=== PATIENT | female | born 1960 | race Caucasian/White ===

== ENCOUNTER 2020-05-29 09:06 | Outpatient (CLI) | payer OTHER, SELFPAY ==
--- NOTE | ~2020-05-29 | MM_ITS ---
EXAMINATION: MM screening dre BI w winston HISTORY: Screening mammogram TECHNIQUE: Craniocaudal and mediolateral oblique 3-D tomosynthesis images were obtained and synthetic 2-D images were generated. CAD analysis was submitted and interpreted. COMPARISON: 02/22/2019 bilateral digital screening mammogram 02/14/2018 bilateral diagnostic digital mammogram and Limited bilateral breast ultrasound 01/23/2017 bilateral diagnostic digital mammogram and limited left breast ultrasound 07/11/2016 diagnostic left digital mammogram and limited left breast ultrasound 01/01/2016 bilateral diagnostic digital mammogram and complete left breast ultrasound 12/31/2014 bilateral diagnostic digital mammogram and complete bilateral breast ultrasound 12/09/2014 bilateral digital screening mammogram BREAST PARENCHYMAL COMPOSITION: There are scattered areas of fibroglandular density. FINDINGS: There is focal asymmetry/architectural distortion in the posterior central upper right [address]. Diagnostic right mammogram and right breast ultrasound examination are recommended. Otherwise there is no evidence of suspicious mass, calcification, or architectural distortion to sugg est malignancy in either breast. There has been no suspicious interval change. IMPRESSION: 1. Focal asymmetry/architectural distortion is suggested in the posterior central upper right breast 2. Diagnostic right mammogram and right breast ultrasound examination are recommended. BI-RADS Category 0: Incomplete: Needs additional imaging evaluation. Reviewed, dictated and finalized at location A. IMPRESSION: 1. Focal asymmetry/architectural distortion is suggested in the posterior centr al upper right breast 2. Diagnostic right mammogram and right breast ultrasound examination are recom mended. BI-RADS Category 0: Incomplete: Needs additional imaging evaluation.
== END 2020-05-29 09:07 | disposition home or self-care (01) ==
LOC: ANHIMG 09:07
PROVIDERS: PCP Family Medicine; Visit Provider Family Medicine
DX: Z12.31 Encounter for screening mammogram for malignant neoplasm of breast (principal); R92.8 Other abnormal and inconclusive findings on diagnostic imaging of breast
CPT/HCPCS: 77063; 77067

== ENCOUNTER 2020-07-03 12:47 | Outpatient (CLI) | payer OTHER, SELFPAY ==
--- NOTE | ~2020-07-03 | DEXA_ITS ---
Bone Density Report Name: Honey Brown Age: 60 Sex: Female Ethnicity: White Date of : 1960 Indication: osteopenia; height loss; prior fracture; asthma or emphysema; Referring Provider: Karli Mansfield Study: Bone densitometry was performed. Exam Date: July 03, 2020 Accession number: [id number] Bone Density: Region BMD T-score Z-score Classification AP Spine (L1-L4) 0.916 -1.2 0.2 Osteopenia Femoral Neck (Left) 0.677 -1.5 -0.3 Osteopenia Total Hip (Left) 0.889 -0.4 0.5 Normal Total Hip Bilateral Avg 0.907 -0.3 0.7 Normal Femoral Neck (Right) 0.678 -1.5 -0.3 Osteopenia Total Hip (Right) 0.924 -0.2 0.8 Normal World Health Organization criteria for BMD impression classify patients as: Normal (T-score at or above -1.0), Osteopenia (T-score between -1.0 and -2.5), or Osteoporosis (T-score at or below -2.5). 10-year Fracture Risk(1): Major Osteoporotic Fracture 13% Hip Fracture 1.2% Reported Risk Factors: [place] (), Neck BMD=0.678, BMI=23.2, previous fracture (1) FRAX(R) Version 3.08. Fracture probability calculated for an untreated patient. Fracture probability may be lower if the patient has received treatment. Previous Exams: Region Exam Age BMD T-score BMD Change BMD Change Date g/cm2 vs Baseline vs Previous AP Spine(L1-L4) 07/03/2020 60 0.916 -1.2 0.004(0.5%) 0.055(6.4%)* 08/18/2017 57 0.861 -1.7 -0.051(-5.6%)* -0.051(-5.6%)* 10/07/2014 54 0.911 -1.2 Total Hip(Left) 07/03/2020 60 0.889 -0.4 0.015(1.7%) 0.051(6.1%)* 08/18/2017 57 0.838 -0.9 -0.037(-4.2%)* -0.037(-4.2%)* 10/07/2014 54 0.874 -0.6 Total Hip(Right) 07/03/2020 60 0.924 -0.2 0.024(2.6%) 0.079(9.3%)* 08/18/2017 57 0.845 -0.8 -0.055(-6.1%)* -0.055(-6.1%)* 10/07/2014 54 0.900 -0.3 *Denotes significance at 95% confidence level, LSC for AP Spine = 0.022 g/cm2, LSC for Total Hip = 0.027 g/cm2 Clinical Information Provided by Patient: Has had a low trauma fracture Has used the following medications: HRT (i.e. estrogen/hormone therapy), Vitamin D, Calcium Has the following medical conditions: Asthma or Emphysema Patient maximum height was 60 Menopause Age: 54 Drinks caffeinated beverages Onset of menses at age 13 Number of children 0 Impression: The patient has low bone mass, based on the Left Femoral Neck T-score. The patient has an estimated ten-year risk of hip fracture of 1.2% and an estimated t
--- NOTE | ~2020-07-03 | MMUS_ITS ---
EXAMINATION: MM diagnostic mammo unilat RT, US breast RT limited HISTORY: Focal asymmetry/architectural distortion suggested in posterior central upper right breast o n screening mammogram with 05/29/2020 TECHNIQUE: Additional 3-D tomosynthesis images of the right breast were performed and synthetic 2-D i mages were generated. Rolled medial and rolled lateral craniocaudal views. CAD analysis was submitted and interpreted. High resolution upper inner and upper outer right breast ultrasound was performed. COMPARISON: 05/29/2020 bilateral digital screening mammogram FINDINGS: MAMMOGRAPHIC FINDINGS: No reproducible mass or architectural distortion is suggested. ULTRASOUND: There is no evidence of focal abnormal solid or cystic lesion in the upper inner or upper outer quadr ants of the right breast at the area of suggested possible asymmetry/architectural distortion. IMPRESSION: 1. No mammographic evidence of malignancy 2. Routine mammographic screening is recommended. BI-RADS Category 1: Negative Reviewed, dictated and finalized at location A. IMPRESSION: 1. No mammographic evidence of malignancy 2. Routine mammographic screening is recommended. BI-RADS Category 1: Negative
== END 2020-07-03 12:48 | disposition home or self-care (01) ==
LOC: ANHIMG 12:49
PROVIDERS: PCP Family Medicine; Visit Provider Nurse Practitioner
DX: Z78.0 Asymptomatic menopausal state (principal); R92.8 Other abnormal and inconclusive findings on diagnostic imaging of breast; M85.88 Other specified disorders of bone density and structure, other site; M85.852 Other specified disorders of bone density and structure, left thigh; M85.851 Other specified disorders of bone density and structure, right thigh
CPT/HCPCS: 76642; 77065; 77080

== ENCOUNTER 2021-07-21 07:48 | Outpatient (CLI) | payer OTHER, SELFPAY ==
--- NOTE | ~2021-07-21 | MM_ITS ---
EXAMINATION: MM screening dre BI w winston HISTORY: Screening mammogram TECHNIQUE: Craniocaudal and mediolateral oblique 3-D tomosynthesis images were obtained and synthetic 2-D images were generated. CAD analysis was submitted and interpreted. COMPARISON: 07/03/2020 right diagnostic mammogram and limited right breast ultrasound 05/29/2020, 02/22/2019 bilateral digital screening mammogram examinations BREAST PARENCHYMAL COMPOSITION: There are scattered areas of fibroglandular density. FINDINGS: There is no evidence of suspicious mass, calcification, or architectural distortion to sugg est malignancy in either breast. There has been no suspicious interval change. IMPRESSION: 1. No mammographic evidence of malignancy. 2. Recommend routine screening mammography in one year. Reviewed, dictated and finalized at location A.
== END 2021-07-21 07:49 | disposition home or self-care (01) ==
LOC: ANHIMG 07:50
PROVIDERS: PCP Family Medicine; Visit Provider Nurse Practitioner
DX: Z12.31 Encounter for screening mammogram for malignant neoplasm of breast (principal)
CPT/HCPCS: 77063; 77067

== ENCOUNTER 2022-09-27 07:21 | Outpatient (CLI) | payer OTHER, SELFPAY ==
--- NOTE | ~2022-09-27 | MM_ITS ---
EXAMINATION: MM screening dre BI w winston HISTORY: Screening TECHNIQUE: Craniocaudal and mediolateral oblique 3-D tomosynthesis images were obtained and synthetic 2-D images were generated. CAD analysis was submitted and interpreted. COMPARISON: Comparison to multiple prior studies sequentially, with oldest reviewed study dated 01/23. BREAST PARENCHYMAL COMPOSITION: The breasts are heterogeneously dense, which may obscure small masses . FINDINGS: There is no evidence of suspicious mass, calcification, or architectural distortion to sugg est malignancy in either breast. There has been no suspicious interval change. IMPRESSION: 1. No mammographic evidence of malignancy. 2. Recommend routine screening mammography in one year. BI-RADS Category 1: Negative Reviewed, dictated and finalized at location A. F DISPATCHER
== END 2022-09-27 07:22 | disposition home or self-care (01) ==
PROVIDERS: PCP Family Medicine; Visit Provider Nurse Practitioner Family
DX: Z12.31 Encounter for screening mammogram for malignant neoplasm of breast (principal)
CPT/HCPCS: 77063; 77067

== ENCOUNTER 2024-01-30 07:34 | Outpatient (CLI) | payer OTHER, SELFPAY ==
--- NOTE | ~2024-01-30 | MM_ITS ---
EXAMINATION: MM screening dre BI w winston HISTORY: Screening TECHNIQUE: Craniocaudal and mediolateral oblique 3-D tomosynthesis images were obtained and synthetic 2-D images were generated. CAD analysis was submitted and interpreted. COMPARISON: Comparison to multiple prior studies sequentially, with oldest reviewed study dated 02/2018. BREAST PARENCHYMAL COMPOSITION: Not dense: There are scattered areas of fibroglandular density. FINDINGS: There is no evidence of suspicious mass, calcification, or architectural distortion to sugg est malignancy in either breast. There has been no suspicious interval change. IMPRESSION: 1. No mammographic evidence of malignancy. 2. Recommend routine screening mammography in one year. BI-RADS Category 1: Negative Reviewed, dictated and finalized at location A.
== END 2024-01-30 07:35 | disposition home or self-care (01) ==
PROVIDERS: PCP Family Medicine; Visit Provider Nurse Practitioner Family
DX: Z12.31 Encounter for screening mammogram for malignant neoplasm of breast (principal)
CPT/HCPCS: 77063; 77067

== ENCOUNTER 2025-01-30 07:52 | Outpatient (CLI) | payer OTHER, SELFPAY ==
--- NOTE | ~2025-01-30 | DEXA_ITS ---
Bone Density Report Name: DESTINY OHARA Age: 64 Sex: Female Ethnicity: White Date of : 1960 Indication: osteopenia; height loss; history of glucocorticoids; prior fracture; asthma or emphysema; Referring Provider: JOHANNY VASQUEZ Study: Bone densitometry was performed. Exam Date: January 30, 2025 Accession number: [id number] Bone Density: Region BMD T-score Z-score Classification AP Spine(L1-L4) 0.845 -1.8 -0.2 Osteopenia Femoral Neck (Left) 0.642 -1.9 -0.4 Osteopenia Total Hip (Left) 0.834 -0.9 0.3 Normal Femoral Neck (Right) 0.644 -1.8 -0.4 Osteopenia Total Hip (Right) 0.852 -0.7 0.4 Normal Total Hip Mean 0.843 -0.8 0.4 Normal World Health Organization criteria for BMD impression classify patients as: Normal (T-score at or above -1.0), Osteopenia (T-score between -1.0 and -2.5), or Osteoporosis (T-score at or below -2.5). 10-year Fracture Risk(1): Major Osteoporotic Fracture 25% Hip Fracture 3.9% Reported Risk Factors: [place] (), Neck BMD=0.642, BMI=25.0, previous fracture, glucocorticoids (1) FRAX(R) Version 3.08. Fracture probability calculated for an untreated patient. Fracture probability may be lower if the patient has received treatment. Previous Exams: Region Exam Age BMD T-score BMD Change BMD Change Date g/cm2 vs Baseline vs Previous AP Spine (L1-L4) 01/30/2025 64 0.845 -1.8 -0.016 (-1.8%) -0.071 (-7.7%) 07/03/2020 60 0.916 -1.2 0.055 (6.4%)* 0.055 (6.4%)* 08/18/2017 57 0.861 -1.7 Total Hip(Left) 01/30/2025 64 0.834 -0.9 -0.004 (-0.5%) -0.055 (-6.2%) 07/03/2020 60 0.889 -0.4 0.051 (6.1%)* 0.051 (6.1%)* 08/18/2017 57 0.838 -0.9 Total Hip(Right) 01/30/2025 64 0.852 -0.7 0.007 (0.8%)# -0.072 (-7.8%) 07/03/2020 60 0.924 -0.2 0.079 (9.3%)* 0.079 (9.3%)* 08/18/2017 57 0.845 -0.8 *Denotes significance at 95% confidence level, LSC for AP Spine = 0.022 g/cm2, LSC for Total Hip = 0.027 g/cm2 # Denotes dissimilar scan types or analysis methods Clinical Information Provided by Patient: Has had a low trauma fracture Has taken Glucocorticoids Has used the following medications: Vitamin D, Calcium Has the following medical conditions: Asthma or Emphysema Patient maximum height was 60 Menopause Age: 54 Drinks caffeinated beverages Onset of menses at age 16 Number of children 0 Impression: The patient has low bone mass, based on the Left Femoral Neck T-score. The patient has an estimated ten-year risk of hip fracture of 3.9% and an estimated ten-year risk of major fracture of 25%, based on the WHO FRAX algorithm. The patient has risk factors, including: previous fracture, history of glucocorticoid therapy. No significant bone loss was observed. Discussion: BONE DENSITY IS LOW AT ONE OR MORE SKELETAL SITES. THE PATIENT'S BMD AND CLINICAL RISK FACTORS CONTRIBUTE TO THIS PATIENT'S HIGH RISK OF FRACTURE. This patient's lowest T-score is low at one or more skeletal sites. It meets the World Health Organization's (WHO) criteria for ?low bone mass? (T-score between -1.0 and -2.5). The patient's 10-year risk of hip fracture and 10 year risk of a major osteoporotic fracture as calculated by FRAX exceeds the threshold where pharmacological therapy is recommended by the National Osteoporosis Foundation (NOF). However, all treatment decisions require clinical judgment and consideration of individual patient factors, including patient preferences, comorbidities, previous drug use, risk factors not captured in the FRAX model (e.g., frailty, falls, vitamin D deficiency, increased bone turnover, interval significant decline in bone density) and possible under or overestimation of fracture risk by FRAX. The patient should follow a healthful lifestyle (good nutrition with adequate calcium and vitamin D, and appropriate weight-bearing exercise). Follow-Up: Consider a repeat BMD and Vertebral Fracture Assessment (VFA) exam in 2 years or sooner if medically necessary, to reassess this patient's status. Reported by: MORRO on 01/30/2025 8:48:00 AM. Reviewed, dictated and finalized at location AJass MORRIS
--- NOTE | ~2025-01-30 | MM_ITS ---
EXAMINATION: MM screening dre BI w winston HISTORY: Screening TECHNIQUE: Craniocaudal and mediolateral oblique 3-D tomosynthesis images were obtained and synthetic 2-D images were generated. CAD analysis was submitted and interpreted. COMPARISON: Comparison to multiple prior studies sequentially, with oldest reviewed study dated 02/22. BREAST PARENCHYMAL COMPOSITION: Not dense: There are scattered areas of fibroglandular density. FINDINGS: There is a new focal asymmetry laterally in the right breast on CC view, middle third, not confirmed on MLO view. The left breast is stable without evidence for malignancy. IMPRESSION: 1. New focal right breast asymmetry laterally on CC view. 2. Additional mammographic views and possible breast ultrasound are recommended. BI-RADS Category 0: Incomplete: Needs additional imaging evaluation. Reviewed, dictated and finalized at location [] IMPRESSION: 1. New focal right breast asymmetry laterally on CC view. 2. Additional mammographic views and possible breast ultrasound are recommended . BI-RADS Category 0: Incomplete: Needs additional imaging evaluation.
--- OUTSIDE RECORDS SUMMARY | 2025-01-30 08:02 | XMS_ITS | Clinical Summary ---
Author Organization [facility] Address [address] [place] [address] Care Team Providers Care Bandage Winding Machine Operator Name Role Phone Tristen Gongora MD Unavailable [phone] Дмитрий Rai MD Unavailable [phone] Arthur Wilcox MD Primary Care Provider [phone] Source Comments [facility],non-owned Affiliates and Associated Physician Practices is amultiple site organization consisting of ambulatory clinics and hospital sitesin [place], [place], [place] and [place]. This disclosure is being madepursuant to the Care Everywhere program and may not contain all information available regarding this patient. Last updated 18.[facility] Allergies Active Allergy Reactions Criticality Noted Date Comments Omeprazole Rash Low 10/06/2014 Medications * Be aware that medications may not be up to date on this document. Alwaysverify current medications with the patient. Medication Sig Dispensed Refills Start Date End Date Status amLODIPine (NORVASC) 10 MG tablet Take 10 mg by mouth once daily. Active Multiple Minerals-Vitamins (CITRACAL PLUS PO) Take 1,200 mg by mouth once daily. Active Misc Natural Products (OSTEO BI-FLEX JOINT SHIELD) TABS tablet Take 1 Tab by mouth once daily. Active Famotidine-Ca Carb-Mag Hydrox (PEPCID COMPLETE) 10-800-165 MG CHEW Take by mouth once daily Active ospemifene (OSPHENA) 60 MG tablet Take 60 mg by mouth daily with breakfast. Active diazepam (VALIUM) 2 MG tabletIndications:Mu scle Spasm Take 1 Tab by mouth 3 times daily as needed for Anxiety. 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 Overview (02/27/2015): Olfactory Groove Meningioma Family History Medical History Relation Name Comments Kidney Stones Brother 1 Jitendra Negative Family History Brother 2 Sukhwinder CAD (Coronary Artery Disease) Father Cancer Maternal Grandmother multipl e myeloma Hypertension Mother Negative Family History Sister Anila Relation Name Status Comments Brother 1 Jitendra Brother 2 Sukhwinder Father Maternal Grandmother Mother Sister Anila Social History Tobacco Use Types Packs/Day Years Used Date Smoking Tobacco: Never Smokeless Tobacco: Never Alcohol Use Standard Drinks/Week Comments No 0 (1 standard drink = 0.6 oz pur e alcohol) Sex and Gender Information Value Date Recorded Sex Assigned at Not on file Gender Identity Not on file Sexual Orientation Not on file Last Filed Vital Signs Vital Sign Reading Time Taken Comments Blood Pressure 128/80 09/01/2015 6:45 PM CDT Pulse 70 09/01/2015 6:45 PM CDT Temperature 36.8 C (98.3 F) 09/01/2015 6:45 PM CDT Respiratory Rate 16 09/01/2015 6:45 PM CDT Oxygen Saturation 98% 09/01/2015 6:45 PM CDT Inhaled Oxygen Concentration - - Weight 57.2 kg (126 lb) 09/01/2015 6:45 PM CDT Height 152.4 cm (5') 09/01/2015 6:45 PM CDT Body Mass Index 24.61 09/01/2015 6:45 PM CDT Plan of Treatment Health Maintenance Due Date Last Done Comments COLOGUARD (AGES 45-75) - COL ON CA SCREENING 1960 COLON MONITORING 1960 COLONOSCOPY - COLON CA SCREENING 1960 CT COLONOGRAPHY - COLON CA SCREENING 1960 Colorectal Cancer Screening 1960 FIT - COLON CA SCREENING 1960 FLEX SIG - COLON CA SCREENING 1960 LIPID TESTING 1960 MAMMOGRAM 1960 PAP SMEAR 1960 HIV SCREENING 02/11/1976 HEPATITIS C SCREENING 02/06/1979 DTAP/TDAP/TD VACCINES (1 - Tdap) 02/11/1980 PNEUMOCOCCAL VACCINE 50+ (1 of 1 - PCV) 2011 ZOSTER VACCINE (1 of 2) 2011 COVID-19 VACCINE ( - 2023-2 5 season) 2024 INFLUENZA VACCINE (#1) 2024 DEPRESSION SCREENING 11/13/2024 Respiratory Syncytial Virus (RSV) Vaccine Pt: or over 60 yrs (1 - 1-dose 75+ series) 02/11/2036 HEPATITIS B VACCINE Aged Out No longe r eligible based on patient's age to complete this topic HIB VACCINE Aged Out No longer eligi ble based on patient's age to complete this topic HPV VACCINE Aged Out No longer eligi ble based on patient's age to complete this topic MENINGOCOCCAL (Group B) VACC INE SHARED DECISION-MAKING Aged Out No longer eligibl e based on patient's age to complete this topic MENINGOCOCCAL GROUPS A/C/Y/W VACCINE Aged Out No longer eligible b ased on patient's age to complete this topic PNEUMOCOCCAL VACCINE Aged Out No long er eligible based on patient's age to complete this topic Care Teams Bandage Winding Machine Operator Relationship Specialty Start Date End Date Arthur Wilcox MD [address] [place] [address] PCP - General Family Medicine 12/01/14 Tristen Gongora MD Referring Physician Neurological Surgery 12/01/14 Дмитрий Rai MD Radiation Oncologist Radiation Oncology 12/01/14
--- OUTSIDE RECORDS SUMMARY | 2025-01-30 08:02 | XMS_ITS | Clinical Summary ---
Author Organization [facility] Administrative Offices Address [address] [place] [id number] Care Team Providers Care Fortune Teller Name Role Phone [facility], External Provider Primary Care Provider U navailable Allergies No known active allergies Medications amLODIPine (NORVASC) 10 mg tablet Take 10 mg by mouth daily. Active fluticasone propionate (FLOVENT HFA) 220 mcg/actuation HFA Aerosol Inhaler Take 2 Puffs by inhalation every 12 hours. Active triamterene-hyd roCHLOROthiazid e (MAXZIDE 25) 37.5-25 mg tablet Take 1 Tablet by mouth daily. Active cholecalciferol , vitamin D3, 5,000 unit Take 400 Units by mouth daily. Active calcium carbonate (CALCIUM 600 ORAL) Take 2 Tablets by mouth daily. Active Active Problems Problem Noted Date Diagnosed Date Meningioma 12/20/2021 Family History Medical History Relation Name Comments Heart Disease Brother Heart Disease Father No Known Problems Maternal Grandfather Cancer Maternal Grandmother Heart Disease Mother No Known Problems Paternal Grandfather No Known Problems Paternal Grandmother Relation Name Status Comments Brother Father Maternal Grandfather Maternal Grandmother Mother Paternal Grandfather Paternal Grandmother Social History Tobacco Use Types Packs/Day Years Used Date Smoking Tobacco: Never Alcohol Use Standard Drinks/Week Comments Yes 1 (1 standard drink = 0.6 oz pur e alcohol) Comments No Sex and Gender Information Value Date Recorded Sex Assigned at Not on file Legal Sex Female 10:28 AM CDT Gender Identity Not on file Sexual Orientation Not on file Last Filed Vital Signs Vital Sign Reading Time Taken Comments Blood Pressure 151/93 12/20/2021 3:48 PM SPORTS MEDICINE COORDINATOR Pulse 75 12/20/2021 3:48 PM SPORTS MEDICINE COORDINATOR Temperature 37 C (98.6 F) 12/20/2021 3:48 PM SPORTS MEDICINE COORDINATOR Respiratory Rate 18 12/20/2021 3:48 PM SPORTS MEDICINE COORDINATOR Oxygen Saturation - - Inhaled Oxygen Concentration - - Weight 50.8 kg (112 lb) 12/20/2021 3:48 PM SPORTS MEDICINE COORDINATOR Height 152.4 cm (5') 12/20/2021 3:48 PM SPORTS MEDICINE COORDINATOR Body Mass Index 21.87 12/20/2021 3:48 PM SPORTS MEDICINE COORDINATOR Plan of Treatment Health Maintenance Due Date Last Done Comments DTAP/TDAP/TD VACCINES (1 - Tdap) 02/11/1980 PAP SMEAR 1991 BREAST CANCER SCREENING 2001 COLORECTAL SCREENING 2006 Colorectal Cancer Screening 2006 FIT-DNA Q 3 years 2006 FIT/FOBT Q 1 year 2006 Flex Sig/CT Colonography Q 5 years 2006 ZOSTER VACCINE (1 of 2) 2011 INFLUENZA VACCINE (#1) 2024 RSV VACCINE (60+ or ) (1 - 1-dose 75+ series) 02/11/2036 Insurance [employer] CHOICE PPO Care Teams Fortune Teller Relationship Specialty Start Date End Date [facility], External Provider [address] [place] [address] PCP - General 05/27/15
--- OUTSIDE RECORDS SUMMARY | 2025-01-30 08:02 | XMS_ITS | Clinical Summary ---
Author Organization [facility] Address [address] [place] [id number] Care Team Providers Care Glue Spreading Machine Operator Name Role Phone Unavailable Primary Care Provider Unavailabl e Social History Tobacco Use Types Packs/Day Years Used Date Smoking Tobacco: Never Assessed Comments Unknown Sex and Gender Information Value Date Recorded Sex Assigned at Not on file Legal Sex Female 8:24 PM CDT Gender Identity Not on file Sexual Orientation Not on file Plan of Treatment Health Maintenance Due Date Last Done Comments Cervical Cancer Screening Pa p Smear (Age 30 to 64) Every 3 Years 1960 Colorectal Cancer Screening Colonoscopy (10 Years) 1961 Annual Physical 02/11/1964 Hepatitis C 1979 DTaP, Tdap and Td Vaccines ( 1 - Tdap) 02/11/1980 Cervical Cancer Screening Pa p with HPV Testing (Age 30 to 64) Every 5 Years 1991 Cervical Cancer Screening with HPV 1991 Mammogram Screening 2001 Zoster Vaccines (1 of 2) 2011 COVID-19 Vaccine (2023-2 5 season) 2024 Influenza Adult (#1) 2024 RSV Immunization or 60+ Years (1 - 1-dose 75+ series) 02/11/2036 Meningococcal B Vaccine Aged Out No l onger eligible based on patient's age to complete this topic Meningococcal Vaccine Aged Out No drew moises eligible based on patient's age to complete this topic Pneumococcal Vaccine: Pediat rics (0 to 5 Years) and At-Risk Patients (6 to 64 Years) Aged Out No longer eligible b ased on patient's age to complete this topic RSV Immunizations Under 20 Months Aged Out No longer eligible based on patient's age to complete this topic
== END 2025-01-30 07:53 | disposition home or self-care (01) ==
PROVIDERS: PCP Family Medicine; Visit Provider Nurse Practitioner Family
DX: Z12.31 Encounter for screening mammogram for malignant neoplasm of breast (principal); Z78.0 Asymptomatic menopausal state; R92.8 Other abnormal and inconclusive findings on diagnostic imaging of breast; M85.88 Other specified disorders of bone density and structure, other site; M85.852 Other specified disorders of bone density and structure, left thigh; M85.851 Other specified disorders of bone density and structure, right thigh
CPT/HCPCS: 77063; 77067; 77080

== ENCOUNTER 2025-02-10 13:32 | Outpatient (CLI) | payer OTHER, SELFPAY ==
--- NOTE | ~2025-02-10 | MMUS_ITS ---
EXAMINATION: MM diagnostic dre RT w [place], US breast RT complete HISTORY: Follow-up right breast asymmetry TECHNIQUE: Additional 3-D tomosynthesis images of the right breast were performed and synthetic 2-D i mages were generated. CAD analysis was submitted and interpreted. High resolution complete right lorin st ultrasound was performed. COMPARISON: Comparison to multiple prior studies sequentially, with oldest reviewed study dated 05/29. BREAST PARENCHYMAL COMPOSITION: Dense: The breasts are heterogeneously dense, which may obscure small masses FINDINGS: MAMMOGRAPHIC FINDINGS: There are no suspicious masses, calcifications or architectural distortion in the right breast. Focal asymmetry compresses with spot views, most likely fibroglandular tissue. ULTRASOUND: Complete US of all 4 quadrants of the right breast/s and retroareolar region was reviewed. Mildly pro minent ducts are noted at 8:00. There are no discrete masses or cysts. IMPRESSION: 1. No evidence for malignancy in the right breast. 2. Routine yearly screening mammogram and regular clinical breast examination are recommended. BI-RADS Category 1: Negative Reviewed, dictated and finalized at location A. IMPRESSION: 1. No evidence for malignancy in the right breast. 2. Routine yearly screening mammogram and regular clinical breast examination a re recommended. BI-RADS Category 1: Negative
--- OUTSIDE RECORDS SUMMARY | 2025-02-10 14:49 | XMS_ITS | Clinical Summary ---
Author Organization [facility] Administrative Offices Address [address] [place] [id number] Care Team Providers Care Manager Home Healthcare Name Role Phone [facility], External Provider Primary Care Provider U navailable [...] Comments Blood Pressure 151/93 12/20/2021 3:48 PM RN MEDICAL SURGICAL Pulse 75 12/20/2021 3:48 PM RN MEDICAL SURGICAL Temperature 37 C (98.6 F) 12/20/2021 3:48 PM RN MEDICAL SURGICAL Respiratory Rate 18 12/20/2021 3:48 PM RN MEDICAL SURGICAL Oxygen Saturation - - Inhaled Oxygen Concentration - - Weight 50.8 kg (112 lb) 12/20/2021 3:48 PM RN MEDICAL SURGICAL Height 152.4 cm (5') 12/20/2021 3:48 PM RN MEDICAL SURGICAL Body Mass Index 21.87 12/20/2021 3:48 PM RN MEDICAL SURGICAL Plan of Treatment Health Maintenance Due Date Last Done Comments DTAP/TDAP/TD VACCINES (1 - Tdap) 02/11/1980 PAP SMEAR 1982 CERVICAL CANCER SCREENING 1991 HPV/Cotest (30-65) 1991 PAP SMEAR 1991 BREAST CANCER SCREENING 2001 COLORECTAL SCREENING 2006 Colorectal Cancer Screening 2006 FIT-DNA Q 3 years 2006 FIT/FOBT Q 1 year 2006 Flex Sig/CT Colonography Q 5 years 2006 ZOSTER VACCINE (1 of 2) 2011 INFLUENZA VACCINE (#1) 2024 RSV VACCINE (60+ or ) (1 - 1-dose 75+ series) 02/11/2036 [place] [address] [employer] OPEN CHOICE PPO Care Teams Manager Home Healthcare Relationship Specialty Start Date End Date [facility], External Provider [address] [place] [address] PCP - General 05/27/15
--- OUTSIDE RECORDS SUMMARY | 2025-02-10 14:49 | XMS_ITS ---
Author Organization Unknown Medications Medication Instructions Effective Dates (start - stop) Status - - Compl eted 120 ACTUAT budesonide 0.18 M G/ACTUAT Dry Powder Inhaler [Pulmicort] - Comple tri - - Compl eted amlodipine 10 MG Oral Tablet [id number] 0:00:00Z - Completed amlodipine 10 MG Oral Tablet [id number] 0:00:00Z - Completed amlodipine 10 MG Oral Tablet [id number] 0:00:00Z - Completed hydrochlorothiazide 25 MG / triamterene 37.5 MG Oral Tablet - Compl eted hydrochlorothiazide 25 MG / triamterene 37.5 MG Oral Tablet - Compl eted hydrochlorothiazide 25 MG / triamterene 37.5 MG Oral Tablet - Compl eted hydrochlorothiazide 25 MG / triamterene 37.5 MG Oral Tablet - Compl eted trazodone hydrochloride 50 M G Oral Tablet - Completed trazodone hydrochloride 50 M G Oral Tablet - Completed hydrochlorothiazide 25 MG / triamterene 37.5 MG Oral Tablet - Compl eted amlodipine 10 MG Oral Tablet [id number] 0:00:00Z - Completed Patient Care team information Name Category Status Period Participants - - Proposed period not known -
--- OUTSIDE RECORDS SUMMARY | 2025-02-10 14:49 | XMS_ITS | Clinical Summary ---
Author Organization [facility] Address [address] [facility] [place] [address] Care Team Providers Care Floor Care Specialist Name Role Phone Tristen Gongora MD Unavailable [phone] Дмитрий Rai MD Unavailable Arthur Wilcox MD Primary Care Provider [phone] Source Comments [facility],non-owned Affiliates and Associated Physician Practices is amultiple site organization consisting of ambulatory clinics and hospital sitesin [place], [place], [place] and [place]. This disclosure is being madepursuant to the Care Everywhere program and may not contain all information available regarding this patient. Last updated 18.[facility] Allergies Active Allergy Reactions Criticality Noted Date [...] age to complete this topic Care Teams Floor Care Specialist Relationship Specialty Start Date End Date Arthur Wilcox MD [address] [place] [address] PCP - General Family Medicine 12/01/14 Tristen Gongora MD Referring Physician Neurological Surgery 12/01/14 Дмитрий Rai MD Radiation Oncologist Radiation Oncology 12/01/14
--- OUTSIDE RECORDS SUMMARY | 2025-02-10 14:49 | XMS_ITS | Clinical Summary ---
Author Organization [facility] Address [address] [place] [id number] Care Team Providers Care Technical Proposal Writer Name Role Phone Unavailable Primary Care Provider [...]
== END 2025-02-10 13:33 | disposition home or self-care (01) ==
LOC: ANHIMG 13:33
PROVIDERS: PCP Family Medicine; Visit Provider Family Medicine
DX: R92.8 Other abnormal and inconclusive findings on diagnostic imaging of breast (principal)
CPT/HCPCS: 76641; 77061; 77065; G0279